=== PATIENT | female | born 1940 | race Caucasian/White ===

== ENCOUNTER → 2025-07-28 12:17 | Outpatient (CLI) | payer OTHER, SELFPAY ==
--- NOTE | 2025-07-28 12:18 | DI.ECHO.S_ITS ---
[place] : : [id number] 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 1) Normal left ventricular size, wall motion, and systolic function (EF 60- 65%). 2) Mildly enlarged right ventricle with normal function. 3) Aortic valve is calcific. Severity of aortic stenosis can't be quantified due to early termination of the study. 4) Right ventricular systolic pressure is estimated to be 51 mmHg plus the clinically estimated CVP which cannot be estimated on this exam. 5) No prior echo is available for comparison. Recommend repeat Echo for complete assessment of the aortic valve. Procedure: A two-dimensional transthoracic echocardiogram with color flow and Doppler was performed. The study quality was technically limited. There is no prior echocardiogram noted for this patient. The patient was in normal sinus rhythm during the exam. Left Ventricle: The left ventricle is normal in size. Left ventricular wall thickness is borderline increased. The ejection fraction is estimated to be 60-65%. Left ventricular systolic function appears normal without focal wall motion abnormalities. Right Ventricle: The right ventricle is mildly dilated. The right ventricular systolic function is normal. Atria: The left atrium grossly appears normal in size. The right atrium is mildly dilated. The interatrial septum is not well visualized. Mitral Valve: The mitral valve leaflets are mildly calcified. There is mild mitral annular calcification. There is mild mitral regurgitation. Aortic Valve: The aortic valve is moderately calcified. There is trace aortic regurgitation. Tricuspid Valve: The tricuspid valve is not well visualized, but is grossly normal. There is mild tricuspid regurgitation. Right ventricular systolic pressure is estimated to be 51 mmHg plus the clinically estimated CVP which cannot be estimated on this exam. Pulmonic Valve: The pulmonic valve is not well visualized. There is no pulmonic valvular regurgitation. Great Vessels: The aortic root is normal size. The ascending aorta is mildly enlarged. The pulmonary artery is normal size. The inferior vena cava was not visualized. Pericardium/ Pleura There is no pericardial effusion. MMode/2D Measurements & Calculations LVIDd: 5.0 cm LVOT diam: 2.0 cm LVIDs: 3.6 cm Ao root diam: 3.2 cm FS: 27.9 % asc Aorta Diam: 4.1 cm EPSS: 0.62 cm IVSd: 1.1 cm LVPWd: 0.97 cm LV lucio. diameter/BSA (cm/m^2): 3.1 LV sys. diameter/BSA (cm/m^2): 2.2 LA A4 area: 25.6 cm2 RA long axis: 5.6 cm LA length (vol): 6.9 cm RA area: 22.6 cm2 RA vol: 78.3 ml RA : 48.3 ml/m2 RVD1 (basal): 4.5 cm RVD2 (mid): 3.5 cm TAPSE: 3.8 cm Doppler Measurements & Calculations MV E max glenn: 102.3 cm/sec TR max glenn: 385.7 cm/sec MV A max glenn: 114.9 cm/sec TR max P.5 mmHg MV E/A: 0.89 PA V2 max: 154.1 cm/sec Med Peak E' Glenn: 3.7 cm/sec PA V2 mean: 96.4 cm/sec E/E' med: 27.4 PA mean P.3 mmHg Lat Peak E' Glenn: 5.5 cm/sec PA pr(Accel): 56.7 mmHg E/E' lat: 18.8 E/e' average: 23.1 MV dec time: 0.33 sec Reading Physician:10:09 AM
== END ==
LOC: ECHO 12:17
PROVIDERS: PCP Registered Nurse; Referring Provider Registered Nurse; Visit Provider Internal Medicine Cardiovascular Disease
DX: I08.1 Rheumatic disorders of both mitral and tricuspid valves (principal); I27.20 Pulmonary hypertension, unspecified; I77.89 Other specified disorders of arteries and arterioles
CPT/HCPCS: 93306